=== PATIENT | male | born 2005 | race Caucasian/White ===

== ENCOUNTER 2025-02-03 20:05 | Emergency (ER) | payer OTHER, SELFPAY ==
[2025-02-03 20:07] VITALS: BP 128/77; PULSE 62; RESP 16; TEMP 36.8; O2SAT 100; BMI 22.0
[2025-02-03 20:53] VITALS: BP 133/73; PULSE 60; RESP 16; TEMP 36.8; O2SAT 100
[2025-02-03] MEDS: Lidocaine HCl 1 % MPF 5 ML VIAL INFILTRATI (21:42)
--- NOTE | 2025-02-03 22:40 | ED.SKABFB ---
HPI - Skin/Abscess/Foreign Bdy General Chief complaint: Skin/Abscess/Foreign Body Stated complaint: foreign object in lip Time Seen by Provider: 02/03/25 20:32 Source: patient and family Mode of arrival: ambulatory Limitations: no limitations History of Present Illness ED Provider: Rahul LAMAR HPI narrative: The patient is a 19-year-old male presenting to the ED reporting he has had a lip ring for quite some time, approximately 3-4 weeks ago he had to remove the lip ring to be seen at his dentist office, patient reports difficulty replacing the hoop ring and instead placed a stud that he admits was a smaller gauge. The patient reports today he decided to remove the stud, at approximately 19:00 he pulled it on the outside of the piercing however prior to grasping the rubber backing the piercing pulled out without the backing. Patient states he did not feel the backing in his mouth, did not swallow it. Patient reports he then examined his lip and felt a lump, patient suspected the rubber backing was lodged in his lip. The patient describes the rubber backing as a 2 mm clear rubber tube. The patient reported his concern to his mother who attempted to find/expressed the backing without success and presents to the ED for evaluation. Related Data Previous Rx's ?Medication ?Instructions ?Recorded amoxicillin 875 mg-potassium 1 tab PO BID #20 tabs 02/03/25 clavulanate 125 mg tablet Allergies Allergy/AdvReac Type Severity Reaction Status Date / Time No Known Allergies Allergy Verified 02/03/25 20:10 Review of Systems Review of Systems: Yes all other systems are reviewed and are negative PMFSH Social History Social History Advance Directives: No Advance Directives Information Provided: No Physical Exam Vital Signs: Vital Signs: Last Vital Signs Temp 98.4 F 02/03/25 23:06 Pulse 53 02/03/25 23:06 Resp 16 02/03/25 23:06 BP 141/88 H 02/03/25 23:06 Pulse Ox 97 02/03/25 23:06 O2 Del Method Room Air 02/03/25 23:06 BMI result Body Mass Index 22.0 CONSTITUTIONAL: The patient appears non-toxic, well nourished and in no acute distress. Vital signs as documented. HEAD: Atraumatic, normocephalic. EYES: EOMs grossly intact, pupils equal, conjunctiva clear, no exudate. ENT: Nares patent, no discharge. Airway patent, no audible stridor, visible mucosa is pink and moist without noted lesions. The patient is left lower lip demonstrates evidence of a lip piercing without a piercing in place, there is a palpable mass noted to the mucosal aspect of the left lower lip. There is a similar but less prominent mass noted in the right lower lip where the patient had another piercing previously. NECK: trachea is midline, no obvious masses or gross abnormalities. CHEST: Symmetric movement, normal appearance. LUNGS: Non-labored work of breathing. CARDIAC: No evidence of hypoperfusion. ABDOMEN: Nondistended, no obvious injury. : Deferred. EXTREMITIES: Moves all extremities spontaneously without reported pain. No obvious injury or deformity noted. NEURO: Alert and oriented x3, CN II-XII appear grossly intact. Cerebellar Functioning grossly intact. Speech clear and appropriate. SKIN: Warm, dry, color appropriate. No rashes or lesions noted. Medications Administered Discontinued Medications Generic Name Dose Route Start Last Admin Trade Name Freq PRN Reason Stop Dose Admin Acetaminophen 975 mg 02/03/25 22:39 02/03/25 22:56 Acetaminophen 325 Mg Tablet PO 02/03/25 22:40 975 mg ONCE ONE Administration Amoxicillin/Clavulanate Potassium 875 mg 02/03/25 22:39 02/03/25 22:56 Amoxicillin/Potassium Clav 875 Mg Tablet PO 02/03/25 22:40 875 mg ONCE ONE Administration Ibuprofen 600 mg 02/03/25 22:39 02/03/25 22:56 Ibuprofen 600 Mg Tablet PO 02/03/25 22:40 600 mg ONCE ONE Administration Lidocaine HCl 5 ml 02/03/25 21:08 02/03/25 21:42 Lidocaine Hcl 1 % Mpf 5 Ml Vial INFILTRATI 02/03/25 21:09 5 ml ONCE ONE Administration Medical Decision Making Medical Decision Making MDM Narrative: 10:50 PM 02/03/2025 (Axel LAMAR): The patient is a 19-year-old male presenting to the ED for evaluation of a suspected foreign body in his left lower lip after attempting to remove his lower lip piercing earlier today. The patient's exam did reveal a palpable mass in the left lower lip concerning for retained foreign body. The area was examined extensively by direct visualization without ability to visualize or express a foreign body. Following local infiltration of lidocaine, the area was opened with a 2 mm punch incision on the mucosal surface of the left lower lip. Area was probed with tweezers. The area of concern for foreign body revealed no obvious foreign body however there was dense material consistent with scar tissue noted. Despite multiple attempts by this provider and Dr. Britt to locate a foreign body, no foreign body was found. The palpable mass identified by the patient and on this provider's exam is more likely the asymmetrical scar tissue of the left lower lip compared to the right. Patient will be placed on prophylactic antibiotics due to exploration of the oral mucosa. Patient will be discharged with outpatient surgical follow up for re-evaluation. Admission/Observation Consideration of admission/observation: Escalation of care including admission/observation considered Discharge Plan Discharge Clinical Impression: Suspected superficial foreign body Patient Disposition: Home, Self-Care Instructions: Soft Tissue Foreign Body (ED) Additional Instructions: Thank you for choosing [facility]'s Emergency Department for your care today. After extensive assessment of your lip with direct visual examination, ultrasound, and minor incision, and probing, the foreign body sensation you felt in your lip is more likely consistent with asymmetric scar tissue than a retained rubber backing to your piercing. At this time there is no evidence of an acute process requiring admission to the hospital or continued ED observation, and it is safe to discharge you home. Due to the extent of examination performed in an attempt to remove the suspected foreign body, we are placing you on Augmentin, please take this antibiotic as prescribed until it is finished. Please also perform saltwater gargles/rinses to reduce the risk of developing an infection in your lip. You may take alternating (staggered) doses of ibuprofen 600mg and Tylenol 1000mg every 4 hours as needed for any additional pain. Please stay well hydrated and get plenty of rest. Please follow up with our surgical office for repeat assessment and additional management. If you do not hear from the surgical office by Friday morning, please call them at the number provided to schedule an appointment. Please also follow up with your primary care physician for re-evaluation, additional management of your symptoms, and continued preventative care. If you do not have a primary care physician, please call the [facility] at [phone] to establish a new primary care physician. While waiting to establish your new primary care physician, you can call our Walk-in [facility] at [phone] for non-emergency needs. Please return to the emergency department if you develop a severe or sudden change in your symptoms, a fever over 100.4 that does not improve with Tylenol or Ibuprofen, recurrent vomiting, or any other new or worsening symptoms or concerns. Prescriptions: New amoxicillin-pot clavulanate 875-125 mg tablet 1 tab PO BID Qty: 20 0RF Referrals: [facility] General Surgeons [Provider Group, General Surgery] Clinical Impression: Suspected superficial foreign body Angely Callaway MD [Primary Care Provider, Pediatrics] Interventions: ED Discharge Assessment Last Done: 02/03/25 23:06 Discharge Date/Time: 02/03/25 23:06 Print Language: Uruguayan
[2025-02-03 22:42] VITALS: BP 141/88; PULSE 53; RESP 16; TEMP 36.9; O2SAT 97
[2025-02-03 23:06] VITALS: BP 141/88; PULSE 53; RESP 16; TEMP 36.9; O2SAT 97
== END 2025-02-03 23:06 | disposition home or self-care (01) ==
PROVIDERS: Emergency Provider Emergency Medicine; PCP Pediatrics Adolescent Medicine
DX: S00.551A Superficial foreign body of lip, initial encounter (principal); L90.5 Scar conditions and fibrosis of skin; X58.XXXA Exposure to other specified factors, initial encounter; Y93.9 Activity, unspecified; Y92.9 Unspecified place or not applicable; Y99.8 Other external cause status
CPT/HCPCS: 11104; 99283; 99284; J2003

== ENCOUNTER 2025-06-08 17:29 | Emergency (ER) | payer OTHER, SELFPAY ==
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
[2025-06-08 17:36] VITALS: BP 156/90; PULSE 65; RESP 18; TEMP 36.6; O2SAT 98; BMI 21.2
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
--- OUTSIDE RECORDS SUMMARY | 2025-06-08 20:55 | XMS_ITS | Clinical Summary ---
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 Name Role Phone Unavailable Primary Care Provider Unavailabl e Allergies No known active allergies Medications No known medications Active Problems Problem Noted Date Diagnosed Date Depression 12/23/2024 Encounters Date Type Department Care Team Description 05/18/[address] [id number] Vini Dempsey MD [facility] - New Patient Assistance from Last 3 Months Social History Tobacco Use Types Packs/Day Years Used Date Smoking Tobacco: Some Days Cigarettes Smokeless Tobacco: Current Tobacco Cessation:Ready to Q uit: Not Asked; Counseling Given: Not Answered Comments:Vaping Sex and Gender Information Value Date Recorded Sex Assigned at Male 06/03/2022 10:25 AM EDT Legal Sex Male 10:25 AM EDT Gender Identity Male 06/03/2022 10:25 AM EDT Sexual Orientation Don't know 06/03/2022 10 :25 AM EDT Last Filed Vital Signs Vital Sign Reading Time Taken Comments Blood Pressure 124/72 12/23/2024 1:08 PM EDT Pulse - - Temperature - - Respiratory Rate - - Oxygen Saturation - - Inhaled Oxygen Concentration - - Weight 82.4 kg (181 lb 11.2 oz) 03/26/2023 3:00 PM EDT Height 182.9 cm (6') 03/26/2023 3:00 PM EDT Body Mass Index 24.64 03/26/2023 3:00 PM EDT Body Mass Index Percentile 80.58% 03/26/2023 3:0 0 PM EDT Growth Chart: CDC (Boys, 2-2 0 Years) Plan of Treatment Upcoming Encounters Date Type Department Care Team ([facility] st Contact Info) Description 06/23/2025 10:15 AM EST Office Visit [facility] [address] [place] [address] Alia Schafer Health Maintenance Due Date Last Done Comments Chlamydia and Gonorrhea Screening 2005 Depression Screening 2005 HIV Screening 2005 SDOH Screening 2005 Disability Screening 2005 MMR Vaccines (1 of 1 - Standard series) 2006 Alcohol/Substance Use Screening 2017 Varicella Vaccines (1 of 2 - 13+ 2-dose series) 2018 Family Planning (PISQ) 2020 HPV Vaccines (1 - Male 3-dos e series) 2020 Meningococcal B Vaccine (1 o f 2 - Standard) 2021 Hepatitis C Screening 2023 Dental X-Ray: Bitewings 08/15/2023 08/14/2022 Fluoride Varnish 09/26/2023 03/26/2023, 08/14/2022 Dental Oral Exam 09/27/2023 03/26/2023, 08/14/2022 Dental Prophylaxis 09/27/2023 03/26/2023, 08/14/2022 DTaP/Tdap/Td Vaccines (1 - Tdap) 2024 Hepatitis B Vaccines (1 of 3 - 19+ 3-dose series) 2024 Pneumococcal Vaccine: Pediatrics (0 to 5 Years) and At-Risk Patients (6 to 49) Years (1 of 2 - PCV) 2024 COVID-19 Vaccine (1 - 2023-2 5 season) 2025 Influenza Vaccine (#1) 2025 Tobacco Screening 12/23/2025 12/23/2024 Dental X-Ray: Full Mouth 12/25/2027 12/23/2024 Zoster Vaccines (1 of 2) 2055 RSV Patients and Patients Aged 60 years or older (1 - 1-dose 75+ series) 2080 HIB Vaccines Aged Out No longer eligi ble based on patient's age to complete this topic Hepatitis A Vaccines Aged Out No long er eligible based on patient's age to complete this topic IPV Vaccines Aged Out No longer eligi ble based on patient's age to complete this topic Meningococcal Vaccine Aged Out No francisca karthik eligible based on patient's age to complete this topic RSV under 20 months Aged Out No longe r eligible based on patient's age to complete this topic Rotavirus Vaccines Aged Out No longer eligible based on patient's age to complete this topic Procedures Procedure Name Priority Date/Time Associated Diagnosis Comments PANORAMIC RADIOGRAPHIC IMAGE Routine 12/23/2024 1:00 PM EDT PROPHYLAXIS - ADULT Routine 03/26/2023 3 :00 PM EDT PERIODIC ORAL EVALUATION - ESTABLISHED PATIENT Routine 03/26/2023 3:00 PM EDT TOPICAL APPLICATION OF FLUORIDE VARNISH Routine 03/26/2023 3:00 PM EDT BITEWINGS - 4 RADIOGRAPHIC IMAGES Routine 08/14/2022 3:00 PM EST Encounter for dental examination and cleaning with abnormal findings from Last 3 Months or Most Recently Relevant to Health Maintenance Insurance [facility]AL-[facility] MEDICAID [place] [id number]
[2025-06-08] MEDS: Lidocaine 4 % Patch ADH..PATCH 1 PATCH TRANSDERMA (22:32)
[2025-06-08 22:35] VITALS: BP 156/90; PULSE 65; RESP 18; TEMP 36.6; O2SAT 98
== END 2025-06-08 22:38 | disposition home or self-care (01) ==
PROVIDERS: Emergency Provider Emergency Medicine
DX: S20.211A Contusion of right front wall of thorax, initial encounter (principal); Y04.2XXA Assault by strike against or bumped into by another person, initial encounter; Y93.9 Activity, unspecified; Y92.9 Unspecified place or not applicable; R51.9 Headache, unspecified; R42 Dizziness and giddiness; R06.00 Dyspnea, unspecified
CPT/HCPCS: 70450; 71250; 72125; 99284

== ENCOUNTER → 2025-06-08 17:51 | Outpatient (BNV) | payer OTHER, SELFPAY | PROVIDERS: Visit Provider Radiology Diagnostic Radiology | DX: R07.89 Other chest pain (principal); R51.9 Headache, unspecified; R42 Dizziness and giddiness; Y09 Assault by unspecified means | CPT/HCPCS: 70450; 71250; 72125 ==